=== PATIENT | female | born 1970 | race Caucasian/White ===

== ENCOUNTER → 2022-07-19 | Day surgery (SDC) | payer OTHER ==
[~2022-07-19] MED LIST: OMEPRAZOLE20 MG PO
== END | disposition home or self-care (01) ==
LOC: OR 06:07
DX: Z12.11 Encounter for screening for malignant neoplasm of colon (principal); K29.50 Unspecified chronic gastritis without bleeding; B96.81 Helicobacter pylori [H. pylori] as the cause of diseases classified elsewhere; K40.90 Unilateral inguinal hernia, without obstruction or gangrene, not specified as recurrent; K76.6 Portal hypertension; K21.00 Gastro-esophageal reflux disease with esophagitis, without bleeding; K31.89 Other diseases of stomach and duodenum; Z80.0 Family history of malignant neoplasm of digestive organs
CPT/HCPCS: J2550; J2704; J7040